=== PATIENT | female | born 1995 | race Caucasian/White ===

== ENCOUNTER 2016-10-21 17:24 | Emergency (ER) | payer SELFPAY ==
[~2016-10-21] VITALS: Ht 175.3 cm; Wt 92.0 kg
[2016-10-21 17:30] VITALS: BP 145/82
[2016-10-21] MEDS ORDERED: IBUPROFEN 200 MG TABLET ONE (17:56)
[2016-10-21] MEDS ORDERED: IBUPROFEN 200 MG TABLET PO ONE (18:00)
[2016-10-21] MEDS ORDERED: ONDANSETRON ODT 4 MG ONE (18:05)
[2016-10-21] MEDS ORDERED: ONDANSETRON ODT 4 MG PO ONE (18:30)
== END 2016-10-21 18:37 | disposition home or self-care (01) ==
LOC: ED 18:31
DX: J02.8 Acute pharyngitis due to other specified organisms (principal)
CPT/HCPCS: 71020; 99284; Q0162

== ENCOUNTER 2016-12-08 21:30 | Emergency (ER) | payer SELFPAY ==
[~2016-12-08] VITALS: Ht 175.3 cm; Wt 86.3 kg
[2016-12-08 21:37] VITALS: BP 139/87
== END 2016-12-08 22:56 | disposition home or self-care (01) ==
LOC: ED 22:50
DX: B37.9 Candidiasis, unspecified (principal)
CPT/HCPCS: 99283

== ENCOUNTER 2018-01-07 19:09 | Emergency (ER) | payer MEDICAID ==
[~2018-01-07] VITALS: Ht 172.7 cm; Wt 126.4 kg
[2018-01-07 19:14] VITALS: BP 114/79
[2018-01-07] MEDS ORDERED: KETOROLAC 30 MG/1 ML IM ONE (19:30)
[2018-01-07] MEDS ORDERED: ONDANSETRON ODT 4 MG PO ONE (19:30)
[2018-01-07] MEDS ORDERED: KETOROLAC 30 MG/1 ML ONE (19:45)
[2018-01-07] MEDS ORDERED: ONDANSETRON ODT 4 MG ONE (19:45)
== END 2018-01-07 20:32 | disposition home or self-care (01) ==
LOC: ED 20:31
DX: J06.9 Acute upper respiratory infection, unspecified (principal); B34.9 Viral infection, unspecified
CPT/HCPCS: 71046; 99284; Q0162

== ENCOUNTER 2018-07-14 19:39 | Emergency (ER) | payer MEDICAID ==
[~2018-07-14] VITALS: Ht 172.7 cm; Wt 104.8 kg
--- NOTE | 2018-07-14 20:08 | NUR ---
PT PRESENTS TO ED TODAY WITH SHARP RIGHT SIDED ABD PAIN THAT STARTS IN FLANK AND RADIATES UP RIGHT ABD X 2 WEEKS. GALLBLADDER REMOVED 7 MONTHS AGO [place]. HAVING N/V AND CONSTIPATION. LBM 4 DAYS AGO. UA COLLECTED. PT RESTING IN [facility]
[2018-07-14] MEDS ORDERED: ONDANSETRON 2MG/ML, 2ML ONE (20:17)
[2018-07-14] MEDS ORDERED: MORPHINE SULFATE 4 MG/ML, 1ML ONE ×2 (20:17→21:34)
[2018-07-14 20:26] LABS: MICROSCOPIC NOT IND
[2018-07-14 20:28] LABS: CULTURE INDICATED? NO
[2018-07-14] MEDS: MORPHINE SULFATE 4 MG/ML, 1ML IVPush PRN ×2 (20:29→21:36)
[2018-07-14] MEDS ORDERED: ONDANSETRON 2MG/ML, 2ML IVPush ONE (20:30)
[2018-07-14 20:32] LABS: BASOPHILS # (AUTO) 0.09 x10^3/uL (0-0.1); BASOPHILS % (AUTO) 1 % (0-1); EOSINOPHILS # (AUTO) 0.21 x10^3/uL (0-0.4); EOSINOPHILS % (AUTO) 2 % (1-7); LYMPHOCYTES # (AUTO) 2.73 x10^3/uL (1-3.4); LYMPHOCYTES % (AUTO) 24 % (22-44); MD NO; MEAN CORPUSCULAR HEMOGLOBIN 29.7 pg (27.0-34.8); MEAN CORPUSCULAR HGB CONC 33.9 g/dL (32.4-35.8); MEAN CORPUSCULAR VOLUME 87.6 fL (80-100); MONOCYTES # (AUTO) 0.48 x10^3/uL (0.2-0.8); MONOCYTES % (AUTO) 4 % (2-9); NEUTROPHILS # (AUTO) 8.08 x10^3/uL (1.8-6.8); NEUTROPHILS % (AUTO) 70 % (42-75); PLATELET COUNT 285 x10^3/uL (130-400); RED BLOOD COUNT 4.68 x10^6/uL (3.82-5.3); RED CELL DISTRIBUTION WIDTH 15.1 % (9.6-15.2)
[2018-07-14 20:43] LABS: ALANINE AMINOTRANSFERASE 18 U/L (12-78); ALBUMIN 4.2 g/dL (3.4-5.0); ANION GAP 6 mmol/L (5-15); CALCIUM 9.6 mg/dL (8.5-10.1); CHLORIDE 110 mmol/L (98-107); CREATININE 0.89 mg/dL (0.55-1.02)
[2018-07-14 20:48] LABS: ALKALINE PHOSPHATASE 72 U/L (45-117); BILIRUBIN,TOTAL 0.4 mg/dL (0.2-1.0); TOTAL PROTEIN 7.2 g/dL (6.4-8.2)
--- NOTE | 2018-07-14 20:59 | NUR ---
PT RESTING IN [facility], IV ESTABLISHED AND MEDICATED PER MAR WITH SOME RELIEF. VSS. PT UP FOR RECHECK
[2018-07-14 21:39] VITALS: BP 119/70
== END 2018-07-14 22:00 | disposition home or self-care (01) ==
LOC: ED 21:02
DX: R10.84 Generalized abdominal pain (principal); R11.2 Nausea with vomiting, unspecified; Z87.891 Personal history of nicotine dependence
CPT/HCPCS: 36415; 80053; 81003; 83690; 84703; 85025; 96374; 96375; 96376; 99283; J2405

== ENCOUNTER 2018-10-08 20:49 | Emergency (ER) | payer MEDICAID ==
[~2018-10-08] VITALS: Ht 172.7 cm; Wt 108.0 kg
[2018-10-08 20:53] VITALS: BP 116/78
[2018-10-08] MEDS ORDERED: PREN1TAB10 PO (21:08)
--- NOTE | 2018-10-08 21:10 | NUR ---
[facility] HERE, G 2 P 1 A O, [facility] 06/30/18, PT STATES THAT SHE FELL DOWN THE STAIRS LAST WEEK AND HAS A HX OF LOWER BACK PAIN THAT HAS NOW GOTTEN WORSE, ALSO HAS HAD PRODUCTIVE COUGH FOR 5 DAYS AND IS CONGESTED. CHANGED INTO GOWN, AMBULATE ACROSS ADAMES FOR URINE SPECIMEN, BACK TO ROOM AND WARM BLANKETS GIVEN FOR COMFORT.
--- NOTE | 2018-10-08 21:26 | NUR ---
MD TO BEDSIDE FOR EVAL.
--- NOTE | 2018-10-08 21:47 | NUR ---
PT ASKING IF DR WITH GIVE HER AN IV PRIOR TO DISCHARGE, DECLINES, PT WAS DRINKING FLUIDS AND H AD JUST EATEN A MEAL BEFORE COMING IN AND HAS HAD NO VOMITING A TTHIS TIME. AWARE OF THE USE OF MEDICATIONS AND ENCOURAGED CLEAR LIQUID DIET. AMBUALTE WITH STEADY GAIT TO TRIAGE
== END 2018-10-08 21:50 | disposition home or self-care (01) ==
LOC: ED 21:23
DX: O9A.212 Injury, poisoning and certain other consequences of external causes complicating pregnancy, second trimester (principal); S39.012A Strain of muscle, fascia and tendon of lower back, initial encounter; J20.8 Acute bronchitis due to other specified organisms; Z3A.15 15 weeks gestation of pregnancy; F41.1 Generalized anxiety disorder; Z90.49 Acquired absence of other specified parts of digestive tract; F17.200 Nicotine dependence, unspecified, uncomplicated; W18.30XA Fall on same level, unspecified, initial encounter; Y93.89 Activity, other specified; Y92.89 Other specified places as the place of occurrence of the external cause; Y99.8 Other external cause status
CPT/HCPCS: 99283

== ENCOUNTER 2018-11-12 02:53 | Emergency (ER) | payer MEDICAID ==
[~2018-11-12] VITALS: Ht 172.7 cm; Wt 109.0 kg
[2018-11-12 02:56] VITALS: BP 127/70
== END 2018-11-12 03:39 | disposition home or self-care (01) ==
LOC: ED 03:21
DX: O26.892 Other specified pregnancy related conditions, second trimester (principal); K08.89 Other specified disorders of teeth and supporting structures; Z3A.20 20 weeks gestation of pregnancy
CPT/HCPCS: 64402; 99284; J3490